=== PATIENT | male | born 2000 | race Two or more races ===

== ENCOUNTER 2023-04-04 18:08 | Emergency (ER) | payer BC, OTHER ==
[~2023-04-04] VITALS: Ht 508 cm; Wt 63.5 kg
--- NOTE | 2023-04-04 18:30 | NUR ---
Pt states he spoke with his mother via his cellphone and she told him he had a seizure as a child.
--- NOTE | 2023-04-04 18:36 | NUR ---
1st contact with patient: [id number], respiration:easy, moving all extremities, denies any pains or discomfort. Patient is unable to recall the events leading to today's ER visit, pending ER doctor's evaluation at this time.
--- NOTE | 2023-04-04 18:41 | NUR ---
Dr [email or web address], medical screeniing exam in progress
[2023-04-04 19:14] LABS: HEMATOCRIT 45.2 % (36.7-47.1); MEAN CORPUSCULAR HEMOGLOBIN 27.8 uug (23.8-33.4); MEAN CORPUSCULAR VOLUME 84.7 fL (73.0-96.2); PLATELET COUNT (AUTO) 183 K/uL (152-348)
[2023-04-04 19:24] LABS: CARBON DIOXIDE 19 mmol/L (21-32); CHLORIDE 100 mmol/L (98-107); CREATININE 1.2 mg/dL (0.6-1.3); GLUCOSE 115 mg/dL (74-106); POTASSIUM 4.5 mmol/L (3.5-5.1); UREA NITROGEN, BLOOD 18 mg/dL (7-18)
[2023-04-04 19:35] LABS: *BILIRUBIN,URIN NEGATIVE (NEGATIVE); *CLARITY,URINE CLEAR (CLEAR); *COLOR,URINE YELLOW (YELLOW); *KETONES,URINE 2+ (NEGATIVE); *UROBILINOGEN,URINE 0.2 E.U./dl (NORMAL); LEUKOCYTE ESTERASE ,URINE NEGATIVE (NEGATIVE); NITRITE, URINE NEGATIVE (NEGATIVE); PH,URINE 5.5 (5.0-8.0); UGLUCOSE TRACE (NEGATIVE)
[2023-04-04 19:45] LABS: *BLOOD, URINE TRACE (NEGATIVE)
[2023-04-04] MEDS ORDERED: IV NS 1000 ML 1,000 ML IV ONE (20:00)
[2023-04-04 20:02] LABS: MAGNESIUM 2.3 mg/dL (1.8-2.4)
[2023-04-04] MEDS ORDERED: CYANOCOBALAMIN 1000 MCG/ML VIAL ONE (20:44)
[2023-04-04] MEDS ORDERED: CYANOCOBALAMIN 1000 MCG/ML VIAL IM ONE (20:45)
[2023-04-04] MEDS ORDERED: SYRI-29 MC (20:47)
[2023-04-04] MEDS ORDERED: MECO10006 IM (20:47)
--- NOTE | 2023-04-04 20:57 | NUR ---
Patient discharged to home in stable condition. Written and verbal after care instructions given. Patient verbalizes understanding of instructions. Stressed follow up or return to ER for worsening s/s. Patient out of ER with steady gait, no acute signs of distress, VSS, all belongings taken, IV site discontinued, provided with copies of lab, xray, and ct results.
[2023-04-04 20:58] VITALS: BP 125/70
[2023-04-04 22:41] LABS: BACTERIA,URINE NONE SEEN /HPF (NONE SEEN); SQUAMOUS EPITHELIAL CELL,UR NONE SEEN /HPF (NONE SEEN); WBC,URINE 0-3 /HPF (0-3)
== END 2023-04-04 20:58 | disposition home or self-care (01) ==
LOC: ER 19:04
DX: G40.802 Other epilepsy, not intractable, without status epilepticus (principal); D72.0 Genetic anomalies of leukocytes; E53.8 Deficiency of other specified B group vitamins; R07.89 Other chest pain; Z79.899 Other long term (current) drug therapy
CPT/HCPCS: 80048; 81001; 82607; 83735; 85025; 87040; 36415; 93005; 71045; 70450; 99285; 96360; 96372; 80320; J3420; J7040; A4663; G0480